=== PATIENT | male | born 1940 | race Caucasian/White ===

== ENCOUNTER 2018-01-26 13:37 | Inpatient (IN) | payer MEDICARE ==
[~2018-01-26] VITALS: Ht 185.4 cm; Wt 88.6 kg
[2018-01-26] MEDS ORDERED: QUIN10 PO (14:15)
[2018-01-26] MEDS ORDERED: ASPI81CH PO (14:17)
[2018-01-26] MEDS ORDERED: ROSU10TA PO (14:17)
[2018-01-26] MEDS ORDERED: METTREX2.5 PO (14:19)
[2018-01-26] MEDS ORDERED: FOLI1 PO (14:20)
[2018-01-26] MEDS ORDERED: CYAN500 PO (14:21)
[2018-01-26 14:43] LABS: BASOPHILS ABSOLUTE AUTO 0.06 K/mm3 (0.00-0.23); BASOPHILS PERCENT AUTO 1 % (0-2); EOSINOPHILS ABSOLUTE AUTO 0.07 K/mm3 (0.00-0.68); EOSINOPHILS PERCENT AUTO 1 % (0-6); IMMATURE GRAN ABSOLUTE AUTO 0.03 K/mm3 (0.00-0.10); IMMATURE GRAN PERCENT AUTO 1 % (0-1); LYMPHOCYTES PERCENT AUTO 28 % (21-46); MONOCYTES ABSOLUTE AUTO 0.44 K/mm3 (0.16-1.47); MONOCYTES PERCENT AUTO 7 % (4-13); Mean Corpuscular HGB 34.1 pg (26.0-34.0); Mean Corpuscular HGB Conc 33.3 g/dL (31.5-36.5); Mean Corpuscular Volume 102 fL (80-100); Mean Platelet Volume 9.9 fL (9.1-12.4); NEUTROPHILS ABSOLUTE AUTO 3.99 K/mm3 (1.96-9.15); NEUTROPHILS PERCENT AUTO 62 % (41-73); Platelet Count 232 K/mm3 (150-400); RDW Coefficient Variation 14.9 % (11.7-14.2); RDW Standard Deviation 54.2 fL (35.1-46.3); Red Blood Cell Count 3.23 M/mm3 (4.30-5.90); White Blood Cell Count 6.39 K/mm3 (4.00-11.30)
[2018-01-26 14:59] LABS: Albumin, Blood 3.6 g/dL (3.4-5.0); Albumin/Globulin Ratio 1.1 (0.8-1.8); Bilirubin, Total 0.5 mg/dL (0.1-1.0); Bun/Creatinine Ratio 13.6 (12.0-20.0); Calcium, Blood 8.5 mg/dL (8.5-10.1); Creatinine, Blood 1.4 mg/dL (0.60-1.20); Globulin, Blood 3.4 g/dL (2.2-4.0); Potassium, Blood 4.1 mmol/L (3.5-5.5); Troponin I 0.213 ng/mL (0.000-0.040)
== END 2018-01-27 19:50 | disposition short-term general hospital (02) | DRG 282 ==
LOC: ICUE 13:37 → ICUW 13:37
PROVIDERS: Internal Medicine
PROC: B2111ZZ Fluoroscopy of Multiple Coronary Arteries using Low Osmolar Contrast (ICD-10-PCS; principal; 2018-01-27)
DX: I21.4 Non-ST elevation (NSTEMI) myocardial infarction (principal); J44.9 Chronic obstructive pulmonary disease, unspecified; I25.110 Atherosclerotic heart disease of native coronary artery with unstable angina pectoris; F17.210 Nicotine dependence, cigarettes, uncomplicated; E78.5 Hyperlipidemia, unspecified; I12.9 Hypertensive chronic kidney disease with stage 1 through stage 4 chronic kidney disease, or unspecified chronic kidney disease; N18.9 Chronic kidney disease, unspecified; D63.1 Anemia in chronic kidney disease; L40.9 Psoriasis, unspecified; Z79.82 Long term (current) use of aspirin; Z85.828 Personal history of other malignant neoplasm of skin; Z79.899 Other long term (current) drug therapy
CPT/HCPCS: 36415; 71046; 80053; 84484; 85025; 85730; 93005; 93010; 93306; 93454; 99152; C1760; C1769; J1644; J1650; J2250; J3010; J7030; Q9967

== ENCOUNTER 2018-09-02 09:25 | Day surgery (SDC) | payer MEDICARE ==
[~2018-09-02] VITALS: Ht 188 cm; Wt 95.8 kg
[~2018-09-02 09:25] MED LIST: ASPI81CH PO; Amiodarone HCl200 MG PO; Amiodarone HCl400 MG PO; Aspirin EC81 MG PO; CLOP75 PO; CYAN500 PO; Clobetasol Emol15 GM; Crestor20 MG PO; FOLI1 PO; HYDR-86 PO; METO25ER PO; METTREX2.5 PO; NITR.4SL SL; Nitroglycerin1 EAC1 TD; Prinivil5 MG PO; QUIN10 PO; ROSU10TA PO
== END 2018-09-02 11:35 | disposition home or self-care (01) ==
LOC: ORSCSDS 09:25
PROVIDERS: Ophthalmology
PROC: 08RK3JZ Replacement of Left Lens with Synthetic Substitute, Percutaneous Approach (ICD-10-PCS; principal; 2018-09-02 11:00)
DX: H25.12 Age-related nuclear cataract, left eye (principal); N18.3 Chronic kidney disease, stage 3 (moderate); I48.91 Unspecified atrial fibrillation; Z79.01 Long term (current) use of anticoagulants; Z87.891 Personal history of nicotine dependence; K21.9 Gastro-esophageal reflux disease without esophagitis; Z79.899 Other long term (current) drug therapy; Z79.82 Long term (current) use of aspirin
CPT/HCPCS: J2001; J2250; J3010; V2632

== ENCOUNTER → 2020-03-15 | Outpatient (CLI) | payer MEDICARE | LOC: LAB SHORT 08:39 → PLD 08:39 | DX: C44.321 Squamous cell carcinoma of skin of nose (principal); C44.311 Basal cell carcinoma of skin of nose | CPT/HCPCS: 88305 ==

== ENCOUNTER → 2020-05-15 | Outpatient (CLI) | payer MEDICARE | LOC: LAB SHORT 12:39 → PLD 12:39 | DX: C44.321 Squamous cell carcinoma of skin of nose (principal) | CPT/HCPCS: 88305 ==

== ENCOUNTER → 2020-11-06 | Outpatient (CLI) | payer MEDICARE ==
[2020-11-06 10:16] LABS: BASOPHILS ABSOLUTE AUTO 0.05 K/mm3 (0.00-0.23); BASOPHILS PERCENT AUTO 1 % (0-2); EOSINOPHILS ABSOLUTE AUTO 0.18 K/mm3 (0.00-0.68); EOSINOPHILS PERCENT AUTO 3 % (0-6); Hematocrit 31.8 % (37.0-53.0); Hemoglobin 10.3 g/dL (13.5-17.5); IMMATURE GRAN ABSOLUTE AUTO 0.02 K/mm3 (0.00-0.10); IMMATURE GRAN PERCENT AUTO 0 % (0-1); LYMPHOCYTES ABSOLUTE AUTO 1.68 K/mm3 (0.84-5.20); LYMPHOCYTES PERCENT AUTO 28 % (21-46); MONOCYTES ABSOLUTE AUTO 0.61 K/mm3 (0.16-1.47); MONOCYTES PERCENT AUTO 10 % (4-13); Mean Corpuscular HGB 32.7 pg (26.0-34.0); Mean Corpuscular HGB Conc 32.4 g/dL (31.5-36.5); Mean Corpuscular Volume 101 fL (80-100); Mean Platelet Volume 9.7 fL (9.1-12.4); NEUTROPHILS ABSOLUTE AUTO 3.38 K/mm3 (1.96-9.15); NEUTROPHILS PERCENT AUTO 57 % (41-73); Platelet Count 224 K/mm3 (150-400); RDW Coefficient Variation 16.6 % (11.7-14.2); RDW Standard Deviation 60.7 fL (35.1-46.3); Red Blood Cell Count 3.15 M/mm3 (4.30-5.90); White Blood Cell Count 5.92 K/mm3 (4.00-11.30)
== END | disposition home or self-care (01) ==
LOC: LAB SHORT 10:12
PROVIDERS: Physician Assistant
DX: D64.9 Anemia, unspecified (principal)
CPT/HCPCS: 85025

== ENCOUNTER 2020-12-10 08:41 | Day surgery (SDC) | payer MEDICARE ==
[~2020-12-10] VITALS: Ht 185.4 cm; Wt 83.7 kg
[~2020-12-10 08:41] MED LIST changes: +RANO500T PO
== END 2020-12-10 10:48 | disposition home or self-care (01) ==
LOC: ORSCSDS 08:41
PROVIDERS: Internal Medicine Gastroenterology
PROC: 0DJD8ZZ Inspection of Lower Intestinal Tract, Via Natural or Artificial Opening Endoscopic (ICD-10-PCS; principal; 2020-12-10 10:00)
DX: Z12.11 Encounter for screening for malignant neoplasm of colon (principal); Z86.010 Personal history of colon polyps; D50.9 Iron deficiency anemia, unspecified; K57.30 Diverticulosis of large intestine without perforation or abscess without bleeding; Z79.82 Long term (current) use of aspirin; Z79.899 Other long term (current) drug therapy
CPT/HCPCS: J2704; J7120

== ENCOUNTER 2021-01-28 07:37 | Day surgery (SDC) | payer MEDICARE ==
[~2021-01-28] VITALS: Ht 185.4 cm; Wt 86.0 kg
--- NOTE | 2021-01-28 11:06 | NUR ---
Patient up to Ambulate independently. Gait steady. Ceasar Paws warming gown applied. Discharge instructions reviewed with patient. Patient verbalizes understanding. Copy given to patient to take home.Lungs clear T/O to Auscultation. Patient States Post-Procedure ride home has been arranged. Discharged via wheelchair to private car for ride home.
== END 2021-01-28 11:11 | disposition home or self-care (01) ==
LOC: ORSCMMR 07:37 → ORD 09:30 → ORSCMMR 09:30
PROVIDERS: Surgery
PROC: B5131ZA Fluoroscopy of Right Jugular Veins using Low Osmolar Contrast, Guidance (ICD-10-PCS; principal; 2021-01-28 09:00)
PROC: 05HM33Z Insertion of Infusion Device into Right Internal Jugular Vein, Percutaneous Approach (ICD-10-PCS; principal; 2021-01-28 09:00)
DX: C83.35 Diffuse large B-cell lymphoma, lymph nodes of inguinal region and lower limb (principal); I25.10 Atherosclerotic heart disease of native coronary artery without angina pectoris; I10 Essential (primary) hypertension; N18.30 Chronic kidney disease, stage 3 unspecified; Z87.891 Personal history of nicotine dependence; Z79.899 Other long term (current) drug therapy; Z79.82 Long term (current) use of aspirin
CPT/HCPCS: 77001; C1788; J0690; J1642; J2250; J3010; J7120

== ENCOUNTER 2021-04-29 09:12 | Inpatient (IN) | payer MEDICARE ==
[~2021-04-29] VITALS: Ht 188 cm; Wt 88.2 kg
[2021-04-29 10:51] LABS: Hematocrit 31.3 % (37.0-53.0); Hemoglobin 10.2 g/dL (13.5-17.5); Mean Corpuscular HGB 33.4 pg (26.0-34.0); Mean Corpuscular HGB Conc 32.6 g/dL (31.5-36.5); Mean Corpuscular Volume 103 fL (80-100); Mean Platelet Volume 10.4 fL (9.1-12.4); Platelet Count 138 K/mm3 (150-400); RDW Coefficient Variation 15.6 % (11.7-14.2); RDW Standard Deviation 59.6 fL (35.1-46.3); Red Blood Cell Count 3.05 M/mm3 (4.30-5.90); White Blood Cell Count 32.94 K/mm3 (4.00-11.30)
[2021-04-29 11:15] LABS: Albumin, Blood 2.8 g/dL (3.4-5.0); Albumin/Globulin Ratio 0.9 (0.8-1.8); Bilirubin, Total 0.8 mg/dL (0.1-1.0); Calcium, Blood 8.4 mg/dL (8.5-10.1); Creatinine, Blood 1.35 mg/dL (0.60-1.20); Globulin, Blood 3.2 g/dL (2.2-4.0); Potassium, Blood 4.2 mmol/L (3.5-5.5); Troponin I 0.044 ng/mL (0.000-0.040)
[2021-04-29 12:11] LABS: BAND PERCENT MAN 5 % (0-8); BASOPHILS PERCENT MAN 0 % (0-2); EOSINOPHILS PERCENT MAN 0 % (0-6); LYMPHOCYTES ABSOLUTE MAN 0.65 K/mm3 (0.84-5.20); LYMPHOCYTES PERCENT MAN 2 % (21-46); MONOCYTES PERCENT MAN 0 % (4-13); NEUTROPHILS ABSOLUTE MAN 32.28 K/mm3 (1.96-9.15); SEG NEUTROPHILS PERCENT MAN 93 % (41-73); TOTAL CELLS COUNTED 100
[2021-04-29 14:53] LABS: SARS-Cov-2 (COVID-19) PCR, MMC NEGATIVE (NEGATIVE)
--- NOTE | 2021-04-29 17:42 | NUR ---
1635 RECEIVED PT TO RM VIA [facility] FROM ER. PT'S DAUGHTER TO RM AT BS. RECEIVED REPORT FROM FRANK HARRIS. PT TO ER WITH C/O ABD PAIN. ADMITTED WITH PANCOLITIS. PT IS NPO AT THIS TIME. REPORTS EVEN A SIP OF WATER SETS OFF SEVERE PAIN. MEDICATED IN ER WITH DILAUDID; PT REPORTED IT EFFECTIVE. PT WITH NON-HODGKIN LYMPHOMA AND HAS RECEIVED 5 OUT OF 6 CHEMO/RADIATION TX'S AND WAS TO ONLY RECEIVE ONE MORE AND BE CANCER FREE. VSS; SEE CHART. PT ASSISTED UP TO BTHRM TO VOID USING FWW AND 1P ASSIST. PT IS WEAK AND UNSTEADY. ALSO FORGETFUL. DAUGHTER REPORTED SOME DEMENTIA. BED ALARM PLACED FOR SAFETY. PT AND DAUGHTER INFORMED. CALL LT IN REACH. DENIED FURTHER NEEDS AT THIS TIME.
[2021-04-30 04:59] LABS: Hematocrit 30.3 % (37.0-53.0); Hemoglobin 10.1 g/dL (13.5-17.5); LYMPHOCYTES ABSOLUTE AUTO 0.22 K/mm3 (0.84-5.20); LYMPHOCYTES PERCENT AUTO 1 % (21-46); MONOCYTES ABSOLUTE AUTO 0.37 K/mm3 (0.16-1.47); MONOCYTES PERCENT AUTO 2 % (4-13); Mean Corpuscular HGB 33.6 pg (26.0-34.0); Mean Corpuscular HGB Conc 33.3 g/dL (31.5-36.5); Mean Corpuscular Volume 101 fL (80-100); Mean Platelet Volume 10.8 fL (9.1-12.4); Platelet Count 79 K/mm3 (150-400); RDW Coefficient Variation 15.4 % (11.7-14.2); RDW Standard Deviation 57.1 fL (35.1-46.3); Red Blood Cell Count 3.01 M/mm3 (4.30-5.90); White Blood Cell Count 17.39 K/mm3 (4.00-11.30)
[2021-04-30 05:07] LABS: BASOPHILS ABSOLUTE AUTO 0.01 K/mm3 (0.00-0.23); BASOPHILS PERCENT AUTO 0 % (0-2); EOSINOPHILS PERCENT AUTO 0 % (0-6); IMMATURE GRAN ABSOLUTE AUTO 1.41 K/mm3 (0.00-0.10); IMMATURE GRAN PERCENT AUTO 8 % (0-1); NEUTROPHILS ABSOLUTE AUTO 15.38 K/mm3 (1.96-9.15); NEUTROPHILS PERCENT AUTO 88 % (41-73)
[2021-04-30 05:16] LABS: Bun/Creatinine Ratio 18.8 (12.0-20.0); Calcium, Blood 8.1 mg/dL (8.5-10.1); Creatinine, Blood 1.49 mg/dL (0.60-1.20); Potassium, Blood 4.5 mmol/L (3.5-5.5)
[2021-04-30 05:25] LABS: BAND PERCENT MAN 7 % (0-8); BASOPHILS PERCENT MAN 0 % (0-2); EOSINOPHILS PERCENT MAN 0 % (0-6); LYMPHOCYTES ABSOLUTE MAN 0.17 K/mm3 (0.84-5.20); LYMPHOCYTES PERCENT MAN 1 % (21-46); MONOCYTES ABSOLUTE MAN 0.17 K/mm3 (0.16-1.47); MONOCYTES PERCENT MAN 1 % (4-13); NEUTROPHILS ABSOLUTE MAN 17.04 K/mm3 (1.96-9.15); SEG NEUTROPHILS PERCENT MAN 91 % (41-73); TOTAL CELLS COUNTED 100
--- NOTE | 2021-04-30 05:30 | NUR ---
PATIENT IS ALERT AND RESPONSIVE. PATIENT DENIES PAIN. PATIENT WAS UP TO THE BATHROOM X2 WITH 1 ASSIST, CONTINENT OF URINE AND BM X2. PATIENT SLEPT MAJORITY OF THE NIGHT.
--- NOTE | 2021-04-30 13:12 | NUR ---
Patient is sitting up in bed and alert. Patient tells me about his many health issues but mostly focuses on his heart issues and his cancer. He then shares about raising his Downs syndrome son who lived to be 59 y/o and also brags about his other son and daughter. He talks about how he also has cared for his [id number] with dementia until he and know is caring for his , Verona, who has dementia. 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 He tells me that he is "just bumping along" with his medical issues and not really worried about it. I reinforce helpful attitudes and practices and provide and provide therapeutic listening, spiritual vocational guidance counselor and prayer. I will continue to remain available to patient and family.
--- NOTE | 2021-04-30 14:21 | NUR ---
Per chart review, no D/C date/time at this point. Pt. is on full liquid diet. Patient lives with spouse Verona and has additional family members involved in care. Unknown disposition at this time.
--- NOTE | 2021-04-30 18:52 | NUR ---
SHIFT SUMMARY PT IS VERY PLEASANT AND CO-OP. FEELING MUCH BETTER TODAY. UP EASILY WITH 1P SBA, USING FWW. DR ADAMS IN TO SEE PT THIS AM. DIET ADVANCED TO CL. PT VERY GRATEFUL JUST TO HAVE ICE WATER FOR A WHILE. PT LATER TRIED JELLO AND THEN CL LUNCH. TOLERATED IT WELL. DECLINED NEEDING ANY PAIN MEDICATION TODAY. REPORTED LLQ ABD TENDERNESS ONLY. PT'S DAUGHTER IN TO VISIT THIS AFTERNOON. IV ABX INFUSING AT THIS TIME. DECLINED FURTHER NEEDS AT THIS TIME. CALL LT IN REACH.
--- NOTE | 2021-05-01 04:17 | NUR ---
PATIENT ALERT AND RESPONSIVE. PATIENT DENIES PAIN OR ANY DISTRESS. PATIENT VITAL SIGNS WAS WNL. PATIENT CONTINUES ON IV FLAGGLE AND LEVAQUIN. PATIENT AMBULATED TO THE BATHROOM VOIDED X2. WILL CONTINUE TO MONITOR.
--- NOTE | 2021-05-01 13:22 | NUR ---
Discussed ways to limit risk of foodborne illness while immune system is weakened. Discussed washing produce well. Recommended choosing cooked fruits/vegetables when eating out. Discussed fully cooking meat/eggs. Recommended avoiding fraire sprouts and certain cheeses. Provided [facility] food saftey handout.
--- NOTE | 2021-05-01 15:28 | NUR ---
Patient is sitting up in bed and alert. Daughter, Jenniffer, is bedside. We discuss the family stressors revolving around several family member's medical issues all happening at the same time. Jenniffer also states that the patient is struggling with a low battery in his hearing aide and how this effecting the communication with the doctors and the with the family. I mention this to patient's RN Mis as well as the need for further communication with the family regarding patient's plan of care. I normalize their experience, reinforce helpful attitudes and practices and provide a calming presence. I will continue to remain available to patient and family.
--- NOTE | 2021-05-01 16:46 | NUR ---
SHIFT SUMMARY: PATIENT A/OX4, UP WITH SBA TO RESTROOM. REPORTS ABDOMINAL PAIN IS MUCH IMPROVED TODAY AND IS TOLERATING SOFT DIET. FEVER THIS EVENING OF 101.8, TYLENOL GIVEN TO TREAT. SKIN INTACT. REPORTS " I AM FEELING MUCH BETTER." HOPES TO DC HOME TOMORROW.
--- NOTE | 2021-05-02 05:25 | NUR ---
PATIENT IS ALERT AND ORIENTED X3. PATIENT CONTINUES ON MIDNIGHT FLAGGLE AND LEVAQUIN WITH NO ADVERSE REACTIONS. PATIENT DID NOT REPORT ANY PAIN, SOB OR ABDOMINAL DISCOMFORT. PATIENT SLEPT WELL, NO ACUTE DISTRESS.
[2021-05-02 09:22] LABS: Hematocrit 25.6 % (37.0-53.0); Hemoglobin 8.7 g/dL (13.5-17.5); Mean Corpuscular HGB 33.6 pg (26.0-34.0); Mean Corpuscular Volume 99 fL (80-100); Mean Platelet Volume 11.8 fL (9.1-12.4); Platelet Count 57 K/mm3 (150-400); RDW Coefficient Variation 14.8 % (11.7-14.2); RDW Standard Deviation 53.9 fL (35.1-46.3); Red Blood Cell Count 2.59 M/mm3 (4.30-5.90); White Blood Cell Count 4.07 K/mm3 (4.00-11.30)
[2021-05-02 09:34] LABS: Bun/Creatinine Ratio 17.8 (12.0-20.0); Calcium, Blood 8.1 mg/dL (8.5-10.1); Creatinine, Blood 1.35 mg/dL (0.60-1.20); Potassium, Blood 3.4 mmol/L (3.5-5.5)
[2021-05-02 10:10] LABS: BAND PERCENT MAN 4 % (0-8); BASOPHILS PERCENT MAN 0 % (0-2); EOSINOPHILS PERCENT MAN 0 % (0-6); LYMPHOCYTES PERCENT MAN 10 % (21-46); MONOCYTES ABSOLUTE MAN 0.16 K/mm3 (0.16-1.47); MONOCYTES PERCENT MAN 4 % (4-13); SEG NEUTROPHILS PERCENT MAN 82 % (41-73); TOTAL CELLS COUNTED 100
--- NOTE | 2021-05-02 15:21 | NUR ---
PATIENT D/C'D TO HOMW WITH DAUGHTER. DC INSTRUCTIONS AND EDUCATIONS DISCUSSED WITH PATIENT AND COPY PROVIDED. FOLLOW UP APPT MADE WITH PATRICIA FOR April. NO NEW RX MEDICATIONS. PATIENT DENIES ANY FURTHER QUESTIONS OR CONCERNS.
--- NOTE | 2021-05-03 12:17 | NUR ---
Copied from [facility] 05/02/21 Notes: Per chart review pt. appropriate for discharge. Pt. denies barriers to discharge or concerns with safety. Strong family support. Denied DME needs. Scheduled for hospital F/U with Kartik Duval on 05/07/21 at 11:40am. Provided patient with that information and [facility] contact info in case any questions post discharge. No further needs at this time.
== END 2021-05-02 15:12 | disposition home or self-care (01) | DRG 386 ==
LOC: ER 09:12 → MEDS 14:37
PROVIDERS: Emergency Medicine; ADMIT Internal Medicine
DX: K51.00 Ulcerative (chronic) pancolitis without complications (principal); C83.30 Diffuse large B-cell lymphoma, unspecified site; Z20.822 Contact with and (suspected) exposure to COVID-19; L40.9 Psoriasis, unspecified; N18.30 Chronic kidney disease, stage 3 unspecified; I25.10 Atherosclerotic heart disease of native coronary artery without angina pectoris; D53.9 Nutritional anemia, unspecified; I12.9 Hypertensive chronic kidney disease with stage 1 through stage 4 chronic kidney disease, or unspecified chronic kidney disease; E87.6 Hypokalemia; D63.1 Anemia in chronic kidney disease; E78.5 Hyperlipidemia, unspecified; Z90.49 Acquired absence of other specified parts of digestive tract; Z90.89 Acquired absence of other organs; Z87.891 Personal history of nicotine dependence; Z88.8 Allergy status to other drugs, medicaments and biological substances; Z79.899 Other long term (current) drug therapy
CPT/HCPCS: 36415; 71045; 74177; 80048; 80053; 83735; 83880; 84484; 85025; 93005; 93010; 96365; 96366; 96367; 96375; 99285-25; A9270; J0744; J1170; J1650; J1956; J2270; J2405; J7030; J7050; Q9967; U0004

== ENCOUNTER → 2021-06-07 | Outpatient (CLI) | payer MEDICARE ==
[2021-06-07 12:17] LABS: BASOPHILS ABSOLUTE AUTO 0.05 K/mm3 (0.00-0.23); BASOPHILS PERCENT AUTO 1 % (0-2); EOSINOPHILS PERCENT AUTO 0 % (0-6); Hematocrit 29.4 % (37.0-53.0); Hemoglobin 9.3 g/dL (13.5-17.5); IMMATURE GRAN ABSOLUTE AUTO 0.05 K/mm3 (0.00-0.10); IMMATURE GRAN PERCENT AUTO 1 % (0-1); LYMPHOCYTES ABSOLUTE AUTO 1.18 K/mm3 (0.84-5.20); LYMPHOCYTES PERCENT AUTO 26 % (21-46); MONOCYTES ABSOLUTE AUTO 0.84 K/mm3 (0.16-1.47); MONOCYTES PERCENT AUTO 19 % (4-13); Mean Corpuscular HGB 30.6 pg (26.0-34.0); Mean Corpuscular HGB Conc 31.6 g/dL (31.5-36.5); Mean Corpuscular Volume 97 fL (80-100); Mean Platelet Volume 9.5 fL (9.1-12.4); NEUTROPHILS ABSOLUTE AUTO 2.36 K/mm3 (1.96-9.15); NEUTROPHILS PERCENT AUTO 53 % (41-73); Platelet Count 262 K/mm3 (150-400); RDW Coefficient Variation 15.8 % (11.7-14.2); RDW Standard Deviation 55.5 fL (35.1-46.3); Red Blood Cell Count 3.04 M/mm3 (4.30-5.90); White Blood Cell Count 4.48 K/mm3 (4.00-11.30)
[2021-06-07 12:55] LABS: Albumin, Blood 2.6 g/dL (3.4-5.0); Albumin/Globulin Ratio 0.9 (0.8-1.8); Bilirubin, Total 0.2 mg/dL (0.1-1.0); Bun/Creatinine Ratio 10.5 (12.0-20.0); Calcium, Blood 8.3 mg/dL (8.5-10.1); Creatinine, Blood 1.52 mg/dL (0.60-1.20); Potassium, Blood 4.8 mmol/L (3.5-5.5); Total Protein, Blood 5.6 g/dL (6.4-8.2)
[2021-06-08 13:19] LABS: C DIFFICILE DNA NEGATIVE (Negative)
== END | disposition home or self-care (01) ==
LOC: LAB SHORT 12:11
PROVIDERS: Physician Assistant
DX: R19.7 Diarrhea, unspecified (principal)
CPT/HCPCS: 80053; 85025; 87493

== ENCOUNTER → 2022-01-16 | Outpatient (CLI) | payer MEDICARE | END | disposition home or self-care (01) | LOC: LAB SHORT 12:21 → PLD 12:21 | DX: C83.35 Diffuse large B-cell lymphoma, lymph nodes of inguinal region and lower limb (principal) | CPT/HCPCS: 88305; 88341; 88342 ==

== ENCOUNTER → 2022-12-09 | Outpatient (CLI) | payer OTHER | END | disposition home or self-care (01) | LOC: PLD 10:58 → LAB SHORT 10:58 | DX: L08.89 Other specified local infections of the skin and subcutaneous tissue (principal) | CPT/HCPCS: 88305; 88312 ==

== ENCOUNTER 2023-03-31 12:08 | Day surgery (SDC) | payer OTHER ==
[~2023-03-31] VITALS: Ht 185.4 cm; Wt 72.9 kg
[2023-03-31] MEDS ORDERED: METHOTREXATE2.510 PO (12:32)
--- NOTE | 2023-03-31 12:38 | NUR ---
03/31/23 1238 Ann Roman TETRACAINE ADMINISTERED AT 1235 FOLLOWED BY PLEDGET PLACEMENT AT 1237 BY [facility].MARILEE, PT SYD WELL
[2023-03-31 14:05] VITALS: BP 132/68
--- NOTE | 2023-03-31 14:33 | NUR ---
03/31/23 1433 Tato Mart IV REMOVED INTACT. SITE WNL.
== END 2023-03-31 14:26 | disposition home or self-care (01) ==
LOC: ORSCSDS 12:08
PROVIDERS: Ophthalmology
PROC: 08RJ3JZ Replacement of Right Lens with Synthetic Substitute, Percutaneous Approach (ICD-10-PCS; principal; 2023-03-31 13:30)
DX: H25.11 Age-related nuclear cataract, right eye (principal); Z96.1 Presence of intraocular lens; I25.810 Atherosclerosis of coronary artery bypass graft(s) without angina pectoris; Z95.1 Presence of aortocoronary bypass graft; E78.5 Hyperlipidemia, unspecified; I10 Essential (primary) hypertension; Z85.72 Personal history of non-Hodgkin lymphomas; Z79.899 Other long term (current) drug therapy; Z87.891 Personal history of nicotine dependence
CPT/HCPCS: J2001; J2250; J3010; J3301; J7040; V2632